=== PATIENT | male | born 1980 | race Caucasian/White ===

== ENCOUNTER 2022-04-26 09:56 | Emergency (ER) | payer OTHER ==
[~2022-04-26] VITALS: Ht 182.9 cm; Wt 136.1 kg
[2022-04-26 10:06] VITALS: BP_SYST 178
--- NOTE | 2022-04-26 10:06 | NUR ---
Patient to ER bed 08 to gown for evaluation. Side rails up.
--- NOTE | 2022-04-26 10:07 | NUR ---
ER Dr. Lao at bedside examining patient.
--- NOTE | 2022-04-26 10:07 | NUR ---
Pt alert and oriented upon face to face assessment. Here from home reporting fall onto R side, mainly UE, 05/15. Pt has limited ROM to R UE due to pain; has some tingling but does have sensation to R hand. Pending pain meds and radiology.
[2022-04-26] MEDS ORDERED: KETOROLAC TROMETHAMINE 60 MG/2 ML VIAL IM ONE ×2 (10:36→10:45)
[2022-04-26] MEDS ORDERED: NAPR-1172 PO (11:48)
--- NOTE | 2022-04-26 11:52 | NUR ---
Patient given written and verbal discharge instructions and verbalizes understanding. ER MD discussed with patient the results and treatment provided. Patient in stable condition. ID arm band removed. Rx of Naprosyn given. Patient educated on pain management and to follow up with PMD. Pain improved. Opportunity for questions provided and answered.
== END 2022-04-26 11:52 | disposition home or self-care (01) ==
LOC: SED 09:56
DX: S43.401A Unspecified sprain of right shoulder joint, initial encounter (principal); W18.30XA Fall on same level, unspecified, initial encounter; Y93.89 Activity, other specified; Y92.89 Other specified places as the place of occurrence of the external cause; Y99.8 Other external cause status
CPT/HCPCS: 99284; 73200; 76376; 96372; J1885